=== PATIENT | male | born 1950 | race Two or more races ===

== ENCOUNTER 2020-07-24 07:25 | Day surgery (SDC) | payer OTHER ==
[~2020-07-24 07:25] MED LIST: ADULT LOW DOSE81 M1 PO; INTESTINEX680 M1 PO; OXYBUTYNIN CHLO15 MG PO; PERINDOPRIL ERBU4 MG PO
[2020-07-24] MEDS ORDERED: MIRALAX17 GM PO (10:52)
[2020-07-24] MEDS ORDERED: TYLENOL ARTHRI650 MG PO (10:52)
[2020-07-24] MEDS ORDERED: ULTRAM50 MG PO (10:52)
== END 2020-07-24 17:35 | disposition home or self-care (01) ==
LOC: CIR.AMB 07:25
PROVIDERS: ATTEND Surgery
DX: K40.30 Unilateral inguinal hernia, with obstruction, without gangrene, not specified as recurrent (principal); Z20.822 Contact with and (suspected) exposure to COVID-19

== ENCOUNTER 2022-04-22 11:36 | Emergency (ER) | payer OTHER ==
[~2022-04-22] VITALS: Ht 160 cm; Wt 72.6 kg
[~2022-04-22 11:36] MED LIST changes: +MIRALAX17 GM PO; +TYLENOL ARTHRI650 MG PO; +ULTRAM50 MG PO
== END 2022-04-22 17:44 | disposition home or self-care (01) ==
LOC: ER 11:36
DX: M25.572 Pain in left ankle and joints of left foot (principal); Z88.0 Allergy status to penicillin